=== PATIENT | male | born 1975 | race Caucasian/White ===

== ENCOUNTER 2021-03-05 14:09 | Emergency (ER) | payer OTHER ==
[~2021-03-05] VITALS: Ht 165.1 cm; Wt 77.1 kg
[2021-03-05] MEDS ORDERED: ATORVASTATIN CA10 MG PO (14:32)
[2021-03-05] MEDS ORDERED: FORTAMET500 MG PO (14:33)
[2021-03-05] MEDS ORDERED: LOTREL 5-10 MG1 CAP PO (14:33)
[2021-03-05] MEDS ORDERED: TAMBOCOR150 MG PO (14:33)
[2021-03-05] MEDS ORDERED: BAYER CHEWABLE81 MG PO (14:33)
== END 2021-03-05 19:45 | disposition home or self-care (01) ==
LOC: ER 14:09
DX: R51.9 Headache, unspecified (principal); M54.2 Cervicalgia; J32.8 Other chronic sinusitis